=== PATIENT | male | born 1970 | race American Indian/Alaskan Native ===

== ENCOUNTER 2019-05-25 17:48 | Outpatient (CLI) | payer OTHER ==
[2019-05-25 19:06] LABS: Albumin 4.3 g/dL (3.9-5); Calcium 9.1 mg/dL (8.4-10.2)
== END 2019-05-25 17:49 | disposition home or self-care (01) ==
LOC: LAB 17:48
PROVIDERS: ATTEND Internal Medicine Nephrology
DX: E87.5 Hyperkalemia (principal)
CPT/HCPCS: 36415; 80048; 82040; 84100